=== PATIENT | female | born 1980 | race Caucasian/White ===

== ENCOUNTER → 2023-03-15 15:13 | Outpatient (CLI) | payer OTHER, SELFPAY ==
[2023-03-15 16:28] LABS: Add Manual Diff / Slide Review NO; Basophils Absolute Auto 100 /uL (0-100); Basophils Percent Auto 0.8 % (0-2); Eosinophils Absolute Auto 100 /uL (0-450); Eosinophils Percent Auto 1.1 % (2-4); Hematocrit 37.6 % (36-46); Hemoglobin 12.7 g/dL (12.0-16.0); Lymphocytes Absolute Auto 1700 /uL (1100-4500); Lymphocytes Percent Auto 25.1 % (25-40); Mean Corpuscular HGB Conc 33.7 % (30-36); Mean Corpuscular Hemoglobin 30.3 PG (26-34); Mean Corpuscular Volume 90.1 fL (80-100); Monocytes Absolute Auto 500 /uL (0-900); Monocytes Percent Auto 6.8 % (3-14); Neutrophils Absolute Auto 4500 /uL (1500-7000); Neutrophils Percent Auto 66.2 % (50-75); Platelet Count 339 X10^3/uL (150-400); Red Blood Cell Count 4.17 X10^6/uL (4.0-5.2); Red Cell Distribution Width 14.4 % (11.6-14.8); White Blood Cell Count 6.7 X10^3/uL (4.5-11.0)
[2023-03-15 16:55] LABS: Alanine Aminotransferase 15 IU/L (<35); Albumin 4.5 g/dL (3.5-5.0); Albumin Globulin Ratio 1.3 (1.0-2.8); Alkaline Phosphatase 46 U/L (38-126); Aspartate Aminotransferase 22 IU/L (14-36); BUN Creatinine Ratio 17.5 (6-22); Bilirubin Total 0.4 mg/dL (0.2-1.3); Blood Urea Nitrogen 10 mg/dL (7-17); Calcium 9.3 mg/dL (8.4-10.2); Carbon Dioxide 25 mmol/L (22-32); Chloride 103 mmol/L (98-107); Estimated Glomerular Filt Rate > 60 mL/min (>60); Globulin 3.4 g/dL (1.7-4.1); Glucose 97 mg/dL (70-100); HEMOLYSIS < 15 (0-50); Potassium 3.8 mmol/L (3.4-5.1); Sodium 138 mmol/L (137-145); Total Protein 7.9 g/dL (6.3-8.2)
== END ==
PROVIDERS: PCP Family Medicine; Referring Provider Family Medicine; Visit Provider Family Medicine
DX: Z85.820 Personal history of malignant melanoma of skin (principal); R59.1 Generalized enlarged lymph nodes
CPT/HCPCS: 36415; 80053; 85025

== ENCOUNTER → 2023-03-23 10:09 | Outpatient (CLI) | payer OTHER, SELFPAY ==
--- NOTE | 2023-03-23 10:11 | DI.CT.S_ITS ---
PROCEDURE: CT ABDOMEN PELVIS W CON INDICATIONS: History of melanoma. Evaluate left inguinal lymph nodes. TECHNIQUE: After the administration of intravenous contrast, axial sections acquired from the lung bases to the pubic symphysis. Coronal and sagittal reformats were performed. For radiation dose reduction, the following was used: automated exposure control, adjustment of mA and/or kV according to patient size. COMPARISON: None. FINDINGS: Image quality: Diagnostic. Lower Chest: No significant findings. ABDOMEN: Liver: No solid mass. Gallbladder: No radiopaque gallstones or wall thickening. Biliary ducts: No biliary dilation. Pancreas: No ductal dilation. Spleen: Size is within normal limits. Adrenal Glands: There is a 2 cm left adrenal nodule demonstrating low CT attenuation, suggesting a benign lipid laden adrenal adenoma. Kidneys and Ureters: No hydronephrosis. No solid mass. No complex renal cystic lesion which requires follow up. Stomach and Bowel: Normal colonic caliber, without significant wall thickening. Normal appendix. There is a moderate amount of stool in colon Peritoneum: No abnormal intraperitoneal fluid. No free air. Ventral Wall: No significant ventral hernia. Abdominal Nodes: No retroperitoneal or mesenteric adenopathy by size criteria. Vessels: Aorta and inferior vena cava are normal in size. PELVIS: Pelvic Organs: Uterus is normal. There is an IUD. Bladder: No bladder wall thickening, accounting for underdistention. Pelvic Nodes: There is a 1.5 x 1.7 cm left inguinal lymph node suspicious for metastasis. Miscellaneous: No inguinal hernias are seen. Bones: No aggressive osseous abnormality. Scoliosis and the spondylitic changes in the lower thoracic spine lumbar spine. IMPRESSION: 1. An enlarged left inguinal lymph node is identified, suspicious for metastasis. Consider percutaneous biopsy or excisional biopsy. 2. A 2 cm left adrenal nodule Dictated by: Yazan Patricio M.D. on 03/23/2023 at 14:26 Approved by: Yazan Patricio M.D. on 03/23/2023 at 14:33
== END ==
LOC: CT 10:10
PROVIDERS: PCP Family Medicine; Referring Provider Family Medicine; Visit Provider Family Medicine
DX: E27.9 Disorder of adrenal gland, unspecified (principal); R59.0 Localized enlarged lymph nodes; Z85.820 Personal history of malignant melanoma of skin; Z97.5 Presence of (intrauterine) contraceptive device
CPT/HCPCS: 74177; Q9967

== ENCOUNTER → 2023-04-02 | Outpatient (CLI) | payer OTHER, SELFPAY ==
--- NOTE | 2023-04-02 12:46 | DI.US.S_ITS ---
PROCEDURE: US BIOPSY LYMPH NODE INDICATIONS: ENLARGED LEFT INGUINAL LYMPH NODE TECHNIQUE: The indications, alternatives, benefits, risks, and complications of the procedure were explained to the patient. Written informed consent was obtained and placed in the chart. Real-time sonography was utilized to choose the site for percutaneous lymph node sampling. The skin was prepped and draped in the usual sterile fashion. 1% lidocaine was infiltrated down to the site of interest. A coaxial needle was then advanced into the site of interest under direct sonographic visualization. A biopsy apparatus was then utilized, and core biopsies were obtained. The needle was then withdrawn; a bandage was applied to the biopsy site. COMPARISON: None. FINDINGS: Biopsy site(s): Left groin Needle: Adzerk biopsy needle set. Number of passes: For Medications: 1% lidocaine for local anaesthesia. Complications: None. IMPRESSION: Successful ultrasound-guided left inguinal lymph node biopsy, with pathology results pending. Dictated by: Kenyatta Evans M.D. on 04/02/2023 at 14:35 Approved by: Kenyatta Evans M.D. on 04/02/2023 at 14:35
== END ==
LOC: US 12:46
PROVIDERS: PCP Family Medicine; Referring Provider Family Medicine; Visit Provider Family Medicine
DX: R59.0 Localized enlarged lymph nodes (principal); Z85.820 Personal history of malignant melanoma of skin
CPT/HCPCS: 38505; 76942

== ENCOUNTER 2023-09-10 12:28 | Emergency (ER) | payer OTHER, SELFPAY ==
[2023-09-10 12:43] VITALS: BP 103/55; PULSE 115; RESP 12; TEMP 36.9; O2SAT 96; BMI 23.6
[2023-09-10] MEDS: SODIUM CHLORIDE 0.9% 1,000 ML 1000 ML IV ×2 (13:48→14:29)
[2023-09-10] MEDS: ONDANSETRON 4 MG/2 ML INJ IV (13:48)
[2023-09-10 13:55] LABS: Add Manual Diff / Slide Review NO; Basophils Absolute Auto 0 /uL (0-100); Basophils Percent Auto 0.2 % (0-2); Eosinophils Absolute Auto 0 /uL (0-450); Eosinophils Percent Auto 0.7 % (2-4); Hematocrit 35.8 % (36-46); Hemoglobin 12.1 g/dL (12.0-16.0); Lymphocytes Absolute Auto 800 /uL (1100-4500); Lymphocytes Percent Auto 10.9 % (25-40); Mean Corpuscular Hemoglobin 29.8 PG (26-34); Mean Corpuscular Volume 87.8 fL (80-100); Monocytes Absolute Auto 1400 /uL (0-900); Monocytes Percent Auto 19.5 % (3-14); Neutrophils Absolute Auto 5000 /uL (1500-7000); Neutrophils Percent Auto 68.7 % (50-75); Platelet Count 381 X10^3/uL (150-400); Red Blood Cell Count 4.07 X10^6/uL (4.0-5.2); Red Cell Distribution Width 13.4 % (11.6-14.8); White Blood Cell Count 7.2 X10^3/uL (4.5-11.0)
[2023-09-10 14:04] LABS: Alanine Aminotransferase 159 IU/L (<35); Albumin 3.7 g/dL (3.5-5.0); Albumin Globulin Ratio 1.3 (1.0-2.8); Alkaline Phosphatase 163 U/L (38-126); Aspartate Aminotransferase 98 IU/L (14-36); BUN Creatinine Ratio 24.6 (6-22); Bilirubin Total 0.6 mg/dL (0.2-1.3); Blood Urea Nitrogen 14 mg/dL (7-17); Calcium 8.7 mg/dL (8.4-10.2); Carbon Dioxide 23 mmol/L (22-32); Chloride 102 mmol/L (98-107); Estimated Glomerular Filt Rate > 60 mL/min (>60); Globulin 2.9 g/dL (1.7-4.1); Glucose 98 mg/dL (70-100); HEMOLYSIS < 15 (0-50); Lipase 97 U/L (23-300); Potassium 3.9 mmol/L (3.4-5.1); Sodium 134 mmol/L (137-145); Total Protein 6.6 g/dL (6.3-8.2)
--- NOTE | 2023-09-10 14:50 | ED.NAVMDI ---
HPI - Nausea/Vomiting/Diarrhea General Chief complaint: Nausea/Vomiting/Diarrhea Stated complaint: sent by [facility], nausea and vomiting Time Seen by Provider: 09/10/23 13:37 Source: patient Mode of arrival: Ambulatory History of Present Illness HPI Narrative: 42-year-old female with history of metastatic melanoma on immunotherapy presents for nausea, vomiting, cramping generalized abdominal pain. Patient was given Zofran by her oncology office, however she continued to have nausea and vomiting and was instructed to present for evaluation. Patient received her 2nd immune treatment 1 week ago. Related Data Home Medications Medication Instructions Recorded Confirmed levonorgestrel 21 mcg/24 hours (8 intrauterine 03/15/23 03/15/23 yrs) 52 mg intrauterine device (Mirena) metoprolol succinate 25 mg 25 mg PO DAILY 09/10/23 09/10/23 tablet,extended release 24 hr ondansetron HCl 8 mg tablet 8 mg PO 3XD 09/10/23 09/10/23 prochlorperazine maleate 10 mg 10 mg PO Q6H PRN nausea 09/10/23 09/10/23 tablet Previous Rx's Medication Instructions Recorded promethazine 25 mg rectal 25 mg NC Q4-6H PRN nausea and 09/10/23 suppository vomiting #12 ea promethazine 25 mg tablet 25 mg PO Q6H PRN nausea and 09/10/23 vomiting #30 tabs promethazine 50 mg rectal 50 mg NC Q4-6H PRN nausea and 09/10/23 suppository vomiting #12 ea promethazine 50 mg tablet 50 mg PO TID PRN nausea and 09/10/23 vomiting #30 tabs Allergies Allergy/AdvReac Type Severity Reaction Status Date / Time No Known Drug Allergies Allergy Unverified 09/10/23 12:47 Review of Systems Review of Systems Narrative: See HPI Patient History Medical History (Updated 09/10/23 @ 17:38 by Ana Petersen MD) Melanoma Hip pain (~2018) Scoliosis (~1993) Ankle fracture (~1993) Chicken pox (~1989) Tinnitus History of recurrent ear infection Hearing loss Surgical History (Updated 03/21/23 @ 19:06 by Soledad Cruz) Anesthesia History of biopsy (~2014) History of section (~2012) History of melanoma (~2014) Family History (Updated 03/21/23 @ 19:08 by Soledad Cruz) Grandmother Cancer Diabetes mellitus Grandfather Mental health problem Grandmother Arrhythmia Social History Smoking Status: Never smoker Smoking Status: Never smoker Substance Use Type: does not use Exam Initial Vital Signs Initial Vital Signs: Vital Signs Temperature 98.5 F 09/10/23 12:43 Pulse Rate 115 H 09/10/23 12:43 Respiratory Rate 12 09/10/23 12:43 Blood Pressure 103/55 L 09/10/23 12:43 Pulse Oximetry 96 09/10/23 12:43 Oxygen Delivery Method Room Air 09/10/23 12:43 Const: Awake, alert, no acute distress, nontoxic appearing Cardiac: regular rate, regular rhythm RESP: unlabored, clear bilaterally, no wheezing GI: Soft, generalized tenderness to palpation without rebound or guarding MSK: Atraumatic, full range of motion, pulses equal Skin: Warm, Dry, intact, no rashes Neuro: AO x3, CN II-XII grossly intact, moves all extremities Course Orders Ordered: ED Orders 09/10/23 12:47 EKG-12 Lead Stat 09/10/23 13:35 Urine Microscopic Stat 09/10/23 13:45 Complete Blood Count AUTO DIFF Stat Comprehensive Metabolic Panel Stat Lipase Stat 09/10/23 15:22 US abdomen limited Stat Ondansetron HCl (Ondansetron 4 Mg/2 Ml Inj) 4 mg IV NOW PRN PRN Reason: Nausea And Vomiting Last Admin: 09/10/23 13:48 Dose: 4 mg Documented By: KARLENE Ondansetron HCl (Ondansetron 4 Mg Odt) 4 mg PO NOW PRN PRN Reason: Nausea And Vomiting Discontinued Medications Sodium Chloride (Normal Saline 0.9%) 1,000 mls @ 1,000 mls/hr IV BOLUS ONE Stop: 09/10/23 14:37 Last Infusion: 09/10/23 14:28 Dose: Infused Documented By: Admin: 09/10/23 13:48 Dose: 1,000 mls/hr Documented By: KARLENE Sodium Chloride (Normal Saline 0.9%) 1,000 mls @ 1,000 mls/hr IV BOLUS ONE Stop: 09/10/23 14:53 Last Infusion: 09/10/23 15:54 Dose: Infused Documented By: Admin: 09/10/23 14:29 Dose: 1,000 mls/hr Documented By: STEVEN Prochlorperazine (Prochlorperazine 10 Mg/2 Ml Vial) 10 mg IV NOW ONE Stop: 09/10/23 16:01 Last Admin: 09/10/23 16:20 Dose: 10 mg Documented By: STEVEN Vital Signs Vital signs: Vital Signs - 8 hr 09/10/23 12:43 Temperature 98.5 F Pulse Rate 115 H Respiratory Rate 12 Blood Pressure 103/55 L Pulse Oximetry 96 Oxygen Delivery Method Room Air MDM - Nausea/Vomiting/Diarrhea Lab Data 09/10/23 13:45 09/10/23 13:45 Labs: Lab Results 09/10/23 Range/Units 13:45 WBC 7.2 (4.5-11.0) X10^3/uL RBC 4.07 (4.0-5.2) X10^6/uL Hgb 12.1 (12.0-16.0) g/dL Hct 35.8 L (36-46) % MCV 87.8 (80-100) fL MCH 29.8 (26-34) PG MCHC 34.0 (30-36) % RDW 13.4 (11.6-14.8) % Plt Count 381 (150-400) X10^3/uL Neut % (Auto) 68.7 (50-75) % Lymph % (Auto) 10.9 L (25-40) % [place] % (Auto) 19.5 H (3-14) % Eos % (Auto) 0.7 L (2-4) % Baso % (Auto) 0.2 (0-2) % Neut # (Auto) 5000 (7595-3333) /uL Lymph # (Auto) 800 L (5319-7620) /uL [place] # (Auto) 1400 H (0-900) /uL Eos # (Auto) 0 (0-450) /uL Baso # (Auto) 0 (0-100) /uL Sodium 134 L (137-145) mmol/L Potassium 3.9 (3.4-5.1) mmol/L Chloride 102 (98-107) mmol/L Carbon Dioxide 23 (22-32) mmol/L BUN 14 (7-17) mg/dL Creatinine 0.57 (0.52-1.04) mg/dL Estimated GFR > 60 (>60) mL/min BUN/Creatinine Ratio 24.6 H (6-22) Glucose 98 (70-100) mg/dL Calcium 8.7 (8.4-10.2) mg/dL Total Bilirubin 0.6 (0.2-1.3) mg/dL AST 98 H (14-36) IU/L ALT 159 H (<35) IU/L Alkaline Phosphatase 163 H (38-126) U/L Total Protein 6.6 (6.3-8.2) g/dL Albumin 3.7 (3.5-5.0) g/dL Globulin 2.9 (1.7-4.1) g/dL Albumin/Globulin Ratio 1.3 (1.0-2.8) Lipase 97 (23-300) U/L Point of Care Testing Test Results Negative Urine Dip Bedside Urine Glucose Negative Bedside Urine Bilirubin - Negative Bedside Urine Ketone +++ 80 Urine Specific [place] 1.025 Bedside Urine Occult Blood ++ Bedside Urine pH 6 Bedside Urine Protein + 30 Bedside Urine Urobilinogen - Negative Bedside Urine Nitrite - Negative Bedside Urine Leukocytes - Negative Esterase Imaging Data US - abdomen: Radiologist's Impression: PROCEDURE: US ABDOMEN LIMITED INDICATIONS: N/V; ELEVATED LIVER ENZYMES TECHNIQUE: Real-time focused scanning was performed of the abdomen, with image documentation. COMPARISON: CT, CT ABDOMEN PELVIS W CON, 03/23/2023, 10:21. FINDINGS: Liver measures 16.8 cm. Gallbladder is unremarkable. Wall thickness measures 1.4 mm. Common bile duct measures 6.9 mm. IMPRESSION: Unremarkable exam. Dictated by: Joyce Hernández M.D. on 09/10/2023 at 15:57 Approved by: Joyce Hernández M.D. on 09/10/2023 at 15:57 [facility] Narrative Medical decision making narrative: Nausea and vomiting in patient on immunotherapy for metastatic cancer. Abdomen is soft, no peritoneal signs. Laboratory work and IV antiemetics ordered. Laboratory work is reviewed, patient has mild elevation in liver enzymes. Patient states that her doctors are aware of this and have an abdominal ultrasound scheduled. We will order here for evaluation. Patient states that her nausea has improved with Zofran but still feels very nauseous and like she will throw up after drinking fluids. IV Compazine ordered. Ultrasound of the abdomen and pelvis negative for acute findings. Patient reports improvement after IV Compazine and is able to tolerate p.o. and IV fluids without emesis. Phenergan p.o. and suppositories sent to pharmacy of choice. Discharge Plan Departure Patient Disposition: Home Clinical Impression: Acute vomiting Instructions: DI for Vomiting -- Adult Activity Restrictions/Additional Instructions: Follow a light diet for the next several days. He may use Zofran for nausea, if that does not work Phenergan tablets and suppositories has been sent to the [facility] Prescriptions: New promethazine 50 mg tablet 50 mg PO TID PRN (Reason: nausea and vomiting) Qty: 30 0RF promethazine 50 mg suppository 50 mg NC Q4-6H PRN (Reason: nausea and vomiting) Qty: 12 0RF promethazine 25 mg tablet 25 mg PO Q6H PRN (Reason: nausea and vomiting) Qty: 30 0RF Rx Instructions: take 1-2 tablets Q6H for nausea/vomiting promethazine 25 mg suppository 25 mg NC Q4-6H PRN (Reason: nausea and vomiting) Qty: 12 0RF No Action ondansetron HCl 8 mg tablet 8 mg PO 3XD metoprolol succinate 25 mg tablet extended release 24 hr 25 mg PO DAILY prochlorperazine maleate 10 mg tablet 10 mg PO Q6H PRN (Reason: nausea) Mirena 21 mcg/24 hours (8 yrs) 52 mg intrauterine device intrauterine Referrals: Angela Sanderson DO [Primary Care Provider] - Stand Alone Forms: Patient Portal/API
--- NOTE | 2023-09-10 15:22 | DI.US.S_ITS ---
PROCEDURE: US ABDOMEN LIMITED INDICATIONS: N/V; ELEVATED LIVER ENZYMES TECHNIQUE: Real-time focused scanning was performed of the abdomen, with image documentation. COMPARISON: CT, CT ABDOMEN PELVIS W CON, 03/23/2023, 10:21. FINDINGS: Liver measures 16.8 cm. Gallbladder is unremarkable. Wall thickness measures 1.4 mm. Common bile duct measures 6.9 mm. IMPRESSION: Unremarkable exam. Dictated by: Joyce Hernández M.D. on 09/10/2023 at 15:57 Approved by: Joyce Hernández M.D. on 09/10/2023 at 15:57
[2023-09-10] MEDS: PROCHLORPERAZINE 10 MG/2 ML VIAL IV (16:20)
[2023-09-10 18:24] VITALS: BP 111/55; PULSE 100; RESP 20; TEMP 37; O2SAT 98
== END 2023-09-10 18:32 | disposition home or self-care (01) ==
PROVIDERS: Emergency Provider Emergency Medicine; PCP Family Medicine
DX: R11.10 Vomiting, unspecified (principal); R10.84 Generalized abdominal pain
CPT/HCPCS: 36415; 76705; 80053; 81003; 81025; 83690; 85025; 96361; 96374; 96375; 99284; J0780; J2405

== ENCOUNTER → 2023-09-23 09:42 | Outpatient (CLI) | payer OTHER, SELFPAY ==
[2023-09-23 11:17] LABS: Free T3, Triiodothyronine Free 1.46 pg/mL (2.77-5.27); Free T4, Direct Thyroxine 0.69 ng/dL (0.78-2.19)
[2023-09-23 11:35] LABS: Thyroid Stimulating Hormone < 0.015 uIU/mL (0.47-4.68)
== END ==
PROVIDERS: PCP Family Medicine; Referring Provider Family Medicine; Visit Provider Family Medicine
DX: E06.9 Thyroiditis, unspecified (principal)
CPT/HCPCS: 36415; 84439; 84443; 84481

== ENCOUNTER → 2024-07-05 11:40 | Outpatient (CLI) | payer OTHER, SELFPAY | PROVIDERS: PCP Family Medicine; Visit Provider Physician Assistant | DX: J02.9 Acute pharyngitis, unspecified (principal) | CPT/HCPCS: 87070; 87077; 87147 ==

== ENCOUNTER → 2024-11-29 09:32 | Outpatient (CLI) | payer OTHER, SELFPAY ==
[2024-11-29 10:45] LABS: Follicle Stimulating Hormone 1.99 mIU/mL
[2024-11-29 11:01] LABS: Estradiol, Total 43.5 pg/mL
== END ==
PROVIDERS: PCP Family Medicine; Referring Provider Obstetrics & Gynecology; Visit Provider Obstetrics & Gynecology
DX: Z30.431 Encounter for routine checking of intrauterine contraceptive device (principal); Z85.820 Personal history of malignant melanoma of skin; Z12.4 Encounter for screening for malignant neoplasm of cervix
CPT/HCPCS: 36415; 82397; 82670; 83001

== ENCOUNTER → 2024-12-26 11:51 | Outpatient (CLI) | payer OTHER, SELFPAY ==
[2024-12-26 12:38] LABS: Appearance Urine UA CLEAR; Bilirubin Urine UA NEGATIVE (NEGATIVE); Color Urine UA YELLOW; Glucose Urine UA NEGATIVE (Negative); Ketones Urine UA NEGATIVE (NEGATIVE); Leukocyte Esterase Urine UA NEGATIVE (NEGATIVE); Nitrite Urine UA NEGATIVE (Negative); Occult Blood Urine UA 2+ (Negative); Protein Urine UA NEGATIVE (Negative); Specific Gravity Urine UA 1.020 (1.000-1.035); Urobilinogen Urine UA 0.2 E.U./dL (0.2)
[2024-12-26 12:40] LABS: Add Manual Diff / Slide Review NO; Hematocrit 36.1 % (36-46); Hemoglobin 12.2 g/dL (12.0-16.0); Lymphocytes Absolute Auto 800 /uL (1100-4500); Mean Corpuscular HGB Conc 33.8 % (30-36); Mean Corpuscular Hemoglobin 29.9 PG (26-34); Mean Corpuscular Volume 88.6 fL (80-100); Platelet Count 352 X10^3/uL (150-400)
[2024-12-26 12:52] LABS: pH Urine UA 6.0 (4.5-8.0)
[2024-12-26 12:59] LABS: Culture Indicated Urine Cult Not Indicated
[2024-12-26 13:05] LABS: Alanine Aminotransferase 11 IU/L (<35); Albumin 4.7 g/dL (3.5-5.0); Albumin Globulin Ratio 1.7 (1.0-2.8); Alkaline Phosphatase 52 U/L (38-126); Blood Urea Nitrogen 11 mg/dL (7-17); Calcium 9.2 mg/dL (8.4-10.2); Carbon Dioxide 28 mmol/L (22-32); Chloride 102 mmol/L (98-107); Estimated Glomerular Filt Rate > 60 mL/min (>60); Globulin 2.8 g/dL (1.7-4.1); Glucose 83 mg/dL (70-99); HEMOLYSIS < 15 (0-50); Lipase 41 U/L (23-300); Potassium 4.2 mmol/L (3.4-5.1); Sodium 140 mmol/L (137-145); Total Protein 7.5 g/dL (6.3-8.2)
== END ==
PROVIDERS: PCP Family Medicine; Referring Provider Family Medicine; Visit Provider Family Medicine
DX: R10.31 Right lower quadrant pain (principal); R10.13 Epigastric pain
CPT/HCPCS: 36415; 80053; 81001; 81025; 83690; 85025

== ENCOUNTER → 2025-01-01 14:43 | Outpatient (CLI) | payer OTHER, SELFPAY ==
--- NOTE | 2025-01-01 14:44 | DI.CT.S_ITS ---
PROCEDURE: CT ABDOMEN PELVIS W CON INDICATIONS: RLQ pain, epigastric pain. hx of melanoma TECHNIQUE: After the administration of intravenous contrast, axial sections acquired from the lung bases to the pubic symphysis. Coronal and sagittal reformats were performed. For radiation dose reduction, the following was used: automated exposure control, adjustment of mA and/or kV according to patient size. COMPARISON: [facility], [place], PET WHOLE BODY MELANOMA, 07/12/2024, 7:40. [facility] [place], CT, CT ABDOMEN PELVIS W CON, 03/23/2023, 10:21. FINDINGS: Image quality: Diagnostic Lower chest: Basal atelectasis. Retrocrural lymphadenopathy is seen. Liver: Unremarkable Gallbladder and biliary system: Unremarkable, nondilated Pancreas: No ductal dilation Spleen: Nonenlarged Adrenals: No discrete nodules. Fundal gastric diverticulum adjacent to the left adrenal Kidneys: No solid renal mass. No hydronephrosis. Vessels and lymph nodes: Retroperitoneal lymph node enlargement, new from prior for example aortocaval node measures 1.7 cm short axis. Pelvic lymphadenopathy also new for example necrotic left external iliac node measures 2.5 cm in short axis. Left inguinal clips. Bowel and peritoneum: No bowel obstruction. No drainable abscess or ascites. Nondilated appendix. Body wall: Unremarkable Pelvis: Under distended urinary bladder. Prominent adnexal veins greater on the left. IUD in place. Bones: No aggressive appearing osseous abnormality. There are degenerative changes. Leftward spinal curvature. IMPRESSION: New retrocrural, retroperitoneal, and pelvic lymphadenopathy suspicious for progressed malignancy. No bowel obstruction. Nondilated appendix. No acute abdominal finding. Prominent bilateral adnexal veins, sometimes associated pelvic congestion. Other findings above. Dictated by: Amilcar Ferris M.D. on 01/02/2025 at 8:40 Approved by: Amilcar Ferris M.D. on 01/02/2025 at 8:48
== END ==
LOC: CT 14:43
PROVIDERS: PCP Family Medicine; Referring Provider Family Medicine; Visit Provider Family Medicine
DX: R59.0 Localized enlarged lymph nodes (principal); K31.4 Gastric diverticulum; J98.11 Atelectasis; R11.0 Nausea; R10.13 Epigastric pain; R10.31 Right lower quadrant pain; Z97.5 Presence of (intrauterine) contraceptive device; Z85.820 Personal history of malignant melanoma of skin
CPT/HCPCS: 74177; Q9967